=== PATIENT | male | born 1980 | race Caucasian/White ===

== ENCOUNTER 2017-09-14 17:21 | Inpatient (IN) | payer MEDICAID, OTHER ==
--- NOTE | 2017-09-14 18:20 | C.PDOC ---
History Of Present Illness 37 y/o male presents to ED requesting detox from heroin and ETOH. Patient states he drinks ETOH every other day and snorts 20 bags of heroin daily. Patient reports last use for both substances was yesterday and states last detox was 5 months ago "got bored" and started using again. No other complaints at this time. Time Seen by Provider: 09/14/17 17:59 Chief Complaint (Nursing): Substance Abuse History Per: Patient History/Exam Limitations: no limitations Onset/Duration Of Symptoms: Days Suicide/Self Injury Attempted (Context): None Modifying Factor(s): Alcohol Past Medical History Reviewed: Historical Data, Nursing Documentation, Vital Signs Vital Signs: Last Vital Signs Temp 97.7 F 09/14/17 18:02 Pulse 80 09/14/17 18:02 Resp 18 09/14/17 18:02 BP 129/91 H 09/14/17 18:02 Pulse Ox 98 09/14/17 19:13 - Medical History PMH: No Chronic Diseases Surgical History: No Surg Hx Family History: States: No Known Family Hx - Social History Hx Alcohol Use: Yes Hx Substance Use: Yes (heroin) - Immunization History Hx Tetanus Toxoid Vaccination: No Hx Influenza Vaccination: No Hx Pneumococcal Vaccination: No Review Of Systems Constitutional: Negative for: Fever, Chills Cardiovascular: Negative for: Chest Pain Gastrointestinal: Negative for: Nausea, Vomiting, Abdominal Pain Skin: Negative for: Rash Psych: Negative for: Suicidal ideation, Withdrawal Physical Exam - Physical Exam Appears: Non-toxic, No Acute Distress Skin: Normal Color, Warm, Dry, No Rash Head: Atraumatic, Normacephalic Eye(s): bilateral: Normal Inspection Oral Mucosa: Moist Neck: Normal ROM, Supple Cardiovascular: Rhythm Regular Respiratory: Normal Breath Sounds, No Rales, No Rhonchi, No Wheezing Gastrointestinal/Abdominal: Soft, No Tenderness, No Guarding, No Rebound Extremity: Normal ROM, Capillary Refill (<2 seconds) Neurological/Psych: Oriented x3 Gait: Steady ED Course And Treatment - Laboratory Results Result Diagrams: 09/14/17 18:28 09/14/17 18:28 Lab Interpretation: No Acute Changes (UDS + opitaes) O2 Sat by Pulse Oximetry: 98 (RA) Pulse Ox Interpretation: Normal Progress Note: Patient ismedically cleared for a detox admission Medical Decision Making Medical Decision Making: Patient is pre screened for detox Pending Medical clearance Disposition - Disposition Disposition: HOSPITALIZED Disposition Time: 19:33 Condition: STABLE - POA Present On Arrival: None - Clinical Impression Clinical Impression: Drug dependence - Scribe Statement The provider has reviewed the documentation as recorded by the Azraibbatsheva Mueller All medical record entries made by the Azraibe were at my direction and personally dictated by me. I have reviewed the chart and agree that the record accurately reflects my personal performance of the history, physical exam, medical decision making, and the department course for this patient. I have also personally directed, reviewed, and agree with the discharge instructions and disposition.
[2017-09-14 18:31] LABS: BASO # 0.1 K/uL (0.0-0.2); BASO % 0.5 % (0.0-2.0); EOS # 0.1 K/uL (0.0-0.7); EOS % 0.7 % (0.0-4.0); HEMOGLOBIN 16.2 g/dL (12.0-18.0); LYMPH # 3.2 K/uL (1.0-4.3); LYMPH % 19.9 % (20.0-40.0); MEAN CELL VOLUME 91.2 fL (80.0-94.0); MEAN CORPUSCULAR HEMOGLOBIN 31.3 pg (27.0-31.0); MEAN CORPUSCULAR HGB CONC 34.3 g/dL (33.0-37.0); MEAN PLATELET VOLUME 7.7 fL (7.2-11.7); MONO # 0.7 K/uL (0.0-0.8); MONO % 4.2 % (0.0-10.0); NEUT # 11.9 K/uL (1.8-7.0); NEUT % 74.7 % (50.0-75.0); RBC 5.2 Mil/uL (4.40-5.90); RED CELL DISTRIBUTION WIDTH 12.7 % (11.5-14.5); WHITE BLOOD COUNT 15.9 K/uL (4.8-10.8)
[2017-09-14 18:36] LABS: URINE BILIRUBIN NEGATIVE (NEGATIVE); URINE BLOOD NEGATIVE (NEGATIVE); URINE CLARITY Clear (Clear); URINE COLOR Yellow (YELLOW); URINE GLUCOSE (UA) NORMAL (Normal); URINE LEUKOCYTE ESTERASE NEG Leu/uL (Negative); URINE NITRATE NEGATIVE (NEGATIVE); URINE PROTEIN NEGATIVE (NEGATIVE); URINE UROBILINOGEN NORMAL mg/dL (0.2-1.0)
[2017-09-14 18:47] LABS: BARBITURATES, UR NEGATIVE (NEGATIVE); BENZODIAZEPINES, UR NEGATIVE (NEGATIVE); PHENCYCLIDINE, UR NEGATIVE (NEGATIVE)
[2017-09-14 18:48] LABS: ALBUMIN 4.4 g/dL (3.5-5.0); BLOOD UREA NITROGEN 15 mg/dL (9-20); CALCIUM 8.7 mg/dl (8.6-10.4); GFR AFRICAN-AMERICAN > 60; GFR NON-AFRICAN AMERICAN > 60
[2017-09-14 18:49] LABS: ALB/GLOB RATIO 1.2 (1.0-2.1); ALT/SGPT 14 U/L (21-72); AST/SGOT 28 U/L (17-59); OPIATES, UR POSITIVE (NEGATIVE)
--- NOTE | 2017-09-14 20:02 | PCM.BM ---
<Nicole Orozco - Last Filed: 09/14/17 20:00> Treatment Plan Problems - Problems identified on initial assessmt potiential for opiate withdrawal Date Initiated: 09/14/17 Time Initiated: 20:01 Assessment reference: NA Status: Active - Milieu Protocol Maintain good personal hygiene: daily Encourage regular showers, daily Remind patient to perform daily oral care, daily Assist patient to perform ADL's Maintain personal safety: every shift Educate patient to report safety concerns to staff, every shift Monitor environment for contraband/sharps Medication safety: Monitor for expected outcome, potential side effects: every shift, Assess barriers to learning: every shift, Assess readiness for medication education: every shift <Keya Donovan - Last Filed: 09/15/17 11:49> Family Contact Family involvement: Clark/SO not involved Family contact: Patient declines to allow family contact at present - Goals for Treatment Patient goals for treatment: COMPLETE DETOX AND PURSUE SUBOXONE OR VIVITROL MAINTENANCE. Discharge/Continuing Care - Education Needs Education Needs: Patient Medication, Patient Diagnosis/Disease Process, Patient Coping Skills, Patient Anger Management skills, Patient Placement options, Patient Community resources - Discharge Discharge Criteria: No longer exhibiting s/s of withdrawal, Reduction of target symptoms Discharge to:: Home, With Family - Treatment Team Participation Patient/Family/SO Statement: 09/15/17 11:48 "I WANNA GO TO [place] TO GET AWAY FROM THIS AREA BUT I'LL CONSIDER SUBOXONE OF VIVITROL IF THEY TAKE MY INSURANCE." Discussed with Family/SO: No Was Patient/Family/SO present at Treatment Team Meeting: Yes
[2017-09-15] MEDS: Multiple Vitamins Tab PO SCH (10:02)
--- NOTE | 2017-09-15 11:32 | PCM.PSYCH ---
Initial Psychiatric Evaluation - Initial Psychiatric Evaluation Type of Admission: Voluntary Legal Status: Capacity Chief Complaint (in patient's own words): "Heroin" History of Present Illness and Precipitating Events: The pt is seen, chart reviewed and case discussed. 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 He is using 20 bags intranasally x6 years. He started w painkillers, used cocaine "years ago" longest sobriety 2 years around 2011 He also uses alcohol and cannabis Alcohol 10 beers a day x 20 years. He had withdrawal in the past but no DTs or seizures Smokes 1/2 ppd cig Detox 5x and rehab once in [place] past psych hx: Denies Family psych hx: Denies Medical hx: Denies Current Medications: Active Medications Generic Name Dose Route Start Last Admin Trade Name Freq PRN Reason Stop Dose Admin Chlordiazepoxide 25 mg 09/15/17 00:00 09/15/17 05:59 Librium PO 09/18/17 23:59 25 mg Q6 ANAMARIA Administration Taper Chlordiazepoxide 25 mg 09/15/17 08:46 Librium PO Q4H PRN Alcohol Withdrawal Clonidine HCl 0.1 mg 09/14/17 21:11 Catapres PO Q4H PRN Symptoms of alcohol withdrawl Folic Acid 1 mg 09/15/17 10:00 09/15/17 10:10 Folic Acid PO 1 mg DAILY ANAMARIA Administration Hydroxyzine HCl 50 mg 09/15/17 08:47 Atarax PO Q6 PRN Anxiety Methadone HCl 20 mg 09/15/17 10:00 09/15/17 10:02 Methadone PO 09/20/17 09:59 20 mg Q24H ANAMARIA Administration Taper Multivitamins 1 tab 09/15/17 10:00 09/15/17 10:02 Hexavitamin PO 1 tab DAILY ANAMARIA Administration Nicotine 1 patch 09/15/17 10:00 09/15/17 10:01 Nicoderm Cq TD 1 patch DAILY ANAMARIA Administration Thiamine HCl 100 mg 09/15/17 10:00 09/15/17 10:01 Vitamin B1 Tab PO 100 mg DAILY ANAMARIA Administration Trazodone HCl 100 mg 09/15/17 22:00 Desyrel PO HS PRN insomnia Past Psychiatric History - Past Psychiatric History Previous Treatment History: None Pertinent Medical Hx (Current Medical&Sleep Prob, Allergies): Allergies Allergy/AdvReac Type Severity Reaction Status Date / Time No Known Allergies Allergy Verified 09/14/17 18:10 No Known Home Med 09/14/17 Review of Systems - Neurological Neurological: UNREMARKABLE - Psychiatric Psychiatric: Abnormal Sleep Pattern, Anxiety. absent: Hallucinations, Homicidal Ideation, Paranoia, Suicidal Ideation Mental Status Examination - Personal Presentation Personal Presentation: Looks stated age - Affect Affect: Constricted - Motor Activity Motor Activity: Calm - Reliability in Providing Information Reliability in Providing Information: Good - Speech Speech: Organized - Mood Mood: Anxious - Formal Thought Process Formal Thought Process: No Impairment - Cognitive Functions Orientation: Person, Place, Situation, Time Sensorium: Alert Attention/Concentration: Attentive Estimate of Intelligence: Average Judgement: Intact, as evidence by: Insight regarding need for hospitalization Memory: Recent intact, as evidence by: Ability to recall events of the day, Remote intact, as evidenced by: Abilit to recall sig. life events - Risk Risk: Withdrawal, Diminished functioning - Strength & Assets Inventory Strength & Assets Inventory: Cooperative - Limitations Limitations: Other DSM 5 DX - DSM 5 DSM 5 Diagnosis: Opioid withdrawal Opioid use disorder, severe Cannabis use disorder, moderate Alcohol use disorder, severe Alcohol withdrawal Cocaine use disorder, in remission - Recommended/Plan of Treatment Treatment Recommendations and Plan of Treatment: Methadone detox librium detox Gabapentin for augmentation As needed medications All risks, benefits and alternatives of the meds discussed, and the pt agreed and understood. Attend groups and activities Supportive therapy and psychoeducation [place] for abstinence CBT for relapse prevention Encourage MAT Refer to rehab or IOP, and self-help groups Smoking cessation with [place] Nicotine patch 34 min Projected ELOS: 4-5 days Prognosis: good w treatment - Smoking Cessation Smoking Cessation Initiated: Yes
[2017-09-16] MEDS: Multiple Vitamins Tab PO SCH (09:07)
--- NOTE | 2017-09-16 14:26 | PCM.PYCHPN ---
Psychiatric Progress Note - Psychiatric Progress Note Patient seen today, length of contact: 16 min Patient Chief Complaint: "Better today" Problems Identified/Issues Discussed: The pt is seen, chart reviewed, case discussed with staff. Support given, CBT and MD used briefly No new symptoms reported, improving slowly and needs more time No SEs from medications, risks discussed. After care discussed Medication Change: Yes (detox changes daily) Medical Record Reviewed: Yes Mental Status Examination - Cognitive Function Orientation: Person, Place, Situation, Time Memory: Intact Attention: WNL Concentration: Poor Association: WNL Fund of Knowledge: WNL - Mood Mood: Anxious - Affect Affect: Constricted - Speech Speech: Appropriate - Formal Thought Process Formal Thought Process: No Impairment - Suicidal Ideation Suicidal Ideation: No - Homicidal Ideation Homicidal Ideation: No Goal/Treatment Plan - Goal/Treatment Plan Need for Continued Stay: Discharge may exacerbated symptoms, Severe functional impairment Progress Toward Problem(s) and Goals/Treatment Plan: Methadone detox librium detox Gabapentin for augmentation As needed medications All risks, benefits and alternatives of the meds discussed, and the pt agreed and understood. Attend groups and activities Supportive therapy and psychoeducation [place] for abstinence CBT for relapse prevention Encourage MAT Refer to rehab or IOP, and self-help groups Smoking cessation with MD Nicotine patch Estimated Date of D/C: 09/19/17
[2017-09-17] MEDS: Multiple Vitamins Tab PO SCH (10:19)
--- NOTE | 2017-09-17 16:18 | PCM.PYCHPN ---
Psychiatric Progress Note - Psychiatric Progress Note Patient seen today, length of contact: 16 min Problems Identified/Issues Discussed: The pt is seen, chart reviewed, case discussed with staff. Patient stated he still had withdrawal symptoms including diarrhea, vomiting, and yawning The pt is compliant with medications and reports no side-effects. Symptoms are improving but needs more time to stabilize. After care discussed, support and psychoeducation given Medication Change: Yes (detox changes daily) Medical Record Reviewed: Yes Mental Status Examination - Cognitive Function Orientation: Person, Place, Situation, Time Memory: Intact Attention: WNL Concentration: Poor Association: WNL Fund of Knowledge: WNL Decription of patient's judgement and insights: fair/good Addtional comments: patient is anxious and cooperative - Mood Mood: Anxious - Affect Affect: Constricted - Speech Speech: Appropriate - Formal Thought Process Formal Thought Process: No Impairment Psychotic Thoughts and Behaviors: denied - Suicidal Ideation Suicidal Ideation: No Plan: denied - Homicidal Ideation Homicidal Ideation: No Plan: denied Goal/Treatment Plan - Goal/Treatment Plan Need for Continued Stay: Discharge may exacerbated symptoms, Severe functional impairment Progress Toward Problem(s) and Goals/Treatment Plan: Methadone detox librium detox increase Gabapentin for augmentation As needed medications All risks, benefits and alternatives of the meds discussed, and the pt agreed and understood. Attend groups and activities Supportive therapy and psychoeducation [place] for abstinence CBT for relapse prevention Encourage MAT Refer to rehab or IOP, and self-help groups Smoking cessation with MD Nicotine patch Estimated Date of D/C: 09/19/17 - Smoking Cessation Smoking Cessation Initiated: Yes
[2017-09-18] MEDS: Multiple Vitamins Tab PO SCH (09:21)
[2017-09-18] MEDS: Aluminum Hydroxide/Magnesium Hydroxide Susp (30 mL) PO PRN ×2 (09:24→17:39)
--- NOTE | 2017-09-18 16:33 | PCM.PYCHPN ---
Psychiatric Progress Note - Psychiatric Progress Note Patient seen today, length of contact: 16 min Patient Chief Complaint: I'm feeling better Problems Identified/Issues Discussed: The pt is seen, chart reviewed, case discussed with staff. Patient reported improvement in withdrawal symptoms including diarrhea, vomiting, and yawning The pt is compliant with medications and reports no side-effects. Symptoms are improving but needs more time to stabilize. After care discussed, support and psychoeducation given Medication Change: Yes (detox changes daily) Medical Record Reviewed: Yes Mental Status Examination - Cognitive Function Orientation: Person, Place, Situation, Time Memory: Intact Attention: WNL Concentration: Poor Association: WNL Fund of Knowledge: WNL Decription of patient's judgement and insights: fair/good Addtional comments: patient is calm and cooperative - Mood Mood: Anxious - Affect Affect: Constricted - Speech Speech: Appropriate - Formal Thought Process Formal Thought Process: No Impairment Psychotic Thoughts and Behaviors: denied - Suicidal Ideation Suicidal Ideation: No Plan: denied - Homicidal Ideation Homicidal Ideation: No Plan: denied Goal/Treatment Plan - Goal/Treatment Plan Need for Continued Stay: Discharge may exacerbated symptoms, Severe functional impairment Progress Toward Problem(s) and Goals/Treatment Plan: continue Methadone detox librium detox increase Gabapentin for augmentation As needed medications All risks, benefits and alternatives of the meds discussed, and the pt agreed and understood. Attend groups and activities Supportive therapy and psychoeducation [place] for abstinence CBT for relapse prevention Encourage MAT Refer to rehab or IOP, and self-help groups Smoking cessation with [place] Nicotine patch Estimated Date of D/C: 09/19/17
[2017-09-19 09:19] VITALS: BP 122/81; PULSE 86; RESP 18; TEMP 98; O2SAT 98
[2017-09-19] MEDS: Multiple Vitamins Tab PO SCH (09:50)
--- NOTE | 2017-09-19 11:12 | PCM.PYCHDC ---
Mental Status Examination - Mental Status Examination Orientation: Person, Place, Situation, Time Memory: Intact Mood: Neutral Affect: Constricted Speech: Soft Attention: WNL Concentration: WNL Association: WNL Fund of Knowledge: WNL Formal Thought Process: No Impairment Description of patient's judgement and insight: good, fair Psychotic Thoughts and Behaviors: denies any AVH Suicidal Ideation: No Current Homicidal Ideation?: No Discharge Summary - Discharge Note Reason for Hospitalization: The pt is seen, chart reviewed and case discussed. 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 He is using 20 bags intranasally x6 years. He started w painkillers, used cocaine "years ago" longest sobriety 2 years around 2011 He also uses alcohol and cannabis Alcohol 10 beers a day x 20 years. He had withdrawal in the past but no DTs or seizures Smokes 1/2 ppd cig Detox 5x and [place] once [place] Laboratory Data: Abnormal Lab Results 09/17/17 09/17/17 17:15 17:15 Hepatitis C Antibody Negative HIV 1&2 Antibody Screen Negative Consultations:: List each consultation separately and include: 1. Reason for request. 2. Findings. 3. Follow-up Summary of Hospital Course include:: 1. Description of specific treatment plan utilized for patients during their course of treatmen. 2. Summarize the time- course for resolution of acute symptoms and/or regressed behaviors. 3. Describe issues identified and worked on during hospitalization. 4. Describe medication utilized. 5. Describe medical problems identified and treated. 6. Reassessment of suicide risk Summary of Hospital Course: During the course of his stay, patient (pt) started progressively improving and he reports improvement in his mood and withdrawal symptoms. He started attending groups and meetings and started socializing. Patient denied any feelings of hopelessness, helplessness, and worthlessness, denied any problem with the sleep or appetite, denied suicidal ideation or homicidal ideation. Pt denied any auditory or visual hallucinations. Some changes were made in his current medications and patient was discharged on following medications. He tolerated these medications very well and denied any side effects. - Final Diagnosis (DSM 5) Condition upon Discharge: STABLE DSM 5: Opioid withdrawal Opioid use disorder, severe Cannabis use disorder, moderate Alcohol use disorder, severe Alcohol withdrawal Cocaine use disorder, in remission Disposition: HOME/ ROUTINE Follow-up Treatment Plan: Education: Pt was educated and counseled about the risks and benefits of taking and not taking medications. Pt was educated and counseled about the risks of drinking and abusing drugs. Pt was educated and counseled to go to the ER or call 911 if pt develop suicidal ideation or homicidal ideation, worsening of symptoms or severe side effects of the meds. Prescriptions/Medication Reconciliation: Gabapentin [Neurontin] 400 mg PO BID #60 cap traZODone [Desyrel] 100 mg PO HS PRN #30 tab PRN Reason: insomnia - Smoking Cessation Smoking Cessation Medication prescribed: No - Antipsychotic Medications Pt discharged on 2 or more routine antipsychotic medications: No
== END 2017-09-19 11:22 | disposition home or self-care (01) | DRG 745 ==
LOC: C.ER 17:21 → C.7D 19:32
PROC: HZ52ZZZ Individual Psychotherapy for Substance Abuse Treatment, Cognitive-Behavioral (ICD-10-PCS; principal; 2017-09-14)
PROC: HZ2ZZZZ Detoxification Services for Substance Abuse Treatment (ICD-10-PCS; 2017-09-14)
PROC: HZ59ZZZ Individual Psychotherapy for Substance Abuse Treatment, Supportive (ICD-10-PCS; 2017-09-14)
PROC: HZ91ZZZ Pharmacotherapy for Substance Abuse Treatment, Methadone Maintenance (ICD-10-PCS; 2017-09-14)
DX: F11.23 Opioid dependence with withdrawal (principal); F10.230 Alcohol dependence with withdrawal, uncomplicated; F12.20 Cannabis dependence, uncomplicated; F14.11 Cocaine abuse, in remission; F17.210 Nicotine dependence, cigarettes, uncomplicated

== ENCOUNTER 2018-01-14 19:04 | Inpatient (IN) | payer MEDICAID, OTHER ==
--- NOTE | 2018-01-14 19:47 | C.PDOC ---
History Of Present Illness 37 year old male presents to the ED requesting alcohol and heroin detox. . He denies suicidal/homicidal ideation and has no other complaints at this time. Time Seen by Provider: 01/14/18 19:42 Chief Complaint (Nursing): Substance Abuse History Per: Patient History/Exam Limitations: no limitations Onset/Duration Of Symptoms: Hrs Current Symptoms Are (Timing): Still Present Suicide/Self Injury Attempted (Context): None Modifying Factor(s): Alcohol, Narcotics (heroin) Associated Symptoms: denies: Suicidal Thoughts, Suicidal Plan Involuntary Hold By: None Recent travel outside of the [place]: No Additional History Per: Patient Past Medical History Reviewed: Historical Data, Nursing Documentation, Vital Signs Vital Signs: Last Vital Signs Temp 97.6 F 01/14/18 22:23 Pulse 62 01/14/18 22:23 Resp 20 01/14/18 22:23 BP 130/81 01/14/18 22:23 Pulse Ox 98 01/14/18 22:23 - Medical History PMH: No Chronic Diseases Denies: Diabetes, Hepatitis, HIV, HTN, Seizures, Sexually Transmitted Disease Surgical History: No Surg Hx - [facility] Procedures DETOXIFICATION SERVICES FOR SUBSTANCE ABUSE TREATMENT (09/14/17) INDIV PSYCHOTHERAPY FOR SUBSTANCE ABUSE TREATMENT, SUPPORT (09/14/17) INDIV PSYCHOTHERAPY FOR SUBSTANCE ABUSE, [facility]IT[facility]IOR[facility] (09/14/17) PHARMACOTHERAPY FOR SUBSTANCE ABUSE, METHADONE MAINT (09/14/17) Family History: States: Unknown Family Hx - Social History Hx Alcohol Use: Yes Hx Substance Use: Yes - Immunization History Hx Tetanus Toxoid Vaccination: No Hx Influenza Vaccination: No Hx Pneumococcal Vaccination: No Review Of Systems Psych: Positive for: Other (alcohol and heroin detox ). Negative for: Suicidal ideation Physical Exam - Physical Exam Appears: Non-toxic, No Acute Distress Skin: Normal Color, Warm, Dry Head: Atraumatic, Normacephalic Eye(s): bilateral: Normal Inspection Oral Mucosa: Moist Neck: Supple Chest: Symmetrical, No Deformity, No Tenderness Cardiovascular: Rhythm Regular, No Murmur Respiratory: Normal Breath Sounds, No Rales, No Rhonchi, No Wheezing Extremity: Normal ROM, Capillary Refill (less than 2 seconds ) Neurological/Psych: Oriented x3, Normal Speech, Normal Cognition ED Course And Treatment - Laboratory Results Result Diagrams: 01/14/18 20:15 01/14/18 20:15 O2 Sat by Pulse Oximetry: 98 (on RA) Pulse Ox Interpretation: Normal Medical Decision Making Medical Decision Making: Progress: Bloodwork and urinalysis ordered and reviewed. medically clear. accepted. Disposition - Disposition Disposition: HOSPITALIZED Disposition Time: 22:00 Condition: STABLE - Clinical Impression Clinical Impression: Drug dependence - Scribe Statement The provider has reviewed the documentation as recorded by the Scribe (Domonique Tan) Provider Attestation: All medical record entries made by the Scribe were at my direction and personally dictated by me. I have reviewed the chart and agree that the record accurately reflects my personal performance of the history, physical exam, medical decision making, and the department course for this patient. I have also personally directed, reviewed, and agree with the discharge instructions and disposition. Decision To Admit - Pt Status Changed To: Hospital Disposition Of: Inpatient - Admit Certification Admit to Inpatient:: After my assessment, the patient will require hospitalization for at least two midnights. This is because of the severity of symptoms shown, intensity of services needed, and/or the medical risk in this patient being treated as an outpatient. - InPatient: Physician Admission Certification: I certify that this patient requires 2 or more midnights of care for the following reason:: needs detox - . Bed Request Type: Detox Admitting Physician: Abner Franklin Patient Diagnosis: Drug dependence
[2018-01-14 20:14] LABS: URINE BILIRUBIN NEGATIVE (NEGATIVE); URINE BLOOD NEGATIVE (NEGATIVE); URINE CLARITY Clear (Clear); URINE COLOR Yellow (YELLOW); URINE GLUCOSE (UA) NORMAL (Normal); URINE LEUKOCYTE ESTERASE NEG Leu/uL (Negative); URINE PROTEIN NEGATIVE (NEGATIVE); URINE UROBILINOGEN NORMAL mg/dL (0.2-1.0)
[2018-01-14 20:19] LABS: BASO # 0.1 K/uL (0.0-0.2); BASO % 0.6 % (0.0-2.0); EOS # 0.1 K/uL (0.0-0.7); EOS % 1.4 % (0.0-4.0); HEMOGLOBIN 14.9 g/dL (12.0-18.0); LYMPH # 2.7 K/uL (1.0-4.3); LYMPH % 27.7 % (20.0-40.0); MEAN CELL VOLUME 90.9 fL (80.0-94.0); MEAN CORPUSCULAR HEMOGLOBIN 31.9 pg (27.0-31.0); MEAN CORPUSCULAR HGB CONC 35.1 g/dL (33.0-37.0); MEAN PLATELET VOLUME 7.4 fL (7.2-11.7); MONO # 0.5 K/uL (0.0-0.8); NEUT # 6.4 K/uL (1.8-7.0); NEUT % 65.3 % (50.0-75.0); RBC 4.68 Mil/uL (4.40-5.90); RED CELL DISTRIBUTION WIDTH 13.2 % (11.5-14.5); WHITE BLOOD COUNT 9.8 K/uL (4.8-10.8)
[2018-01-14 20:28] LABS: BARBITURATES, UR NEGATIVE (NEGATIVE); BENZODIAZEPINES, UR NEGATIVE (NEGATIVE); PHENCYCLIDINE, UR NEGATIVE (NEGATIVE)
[2018-01-14 20:29] LABS: OPIATES, UR POSITIVE (NEGATIVE)
[2018-01-14 20:34] LABS: ALB/GLOB RATIO 1.4 (1.0-2.1); ALBUMIN 4.2 g/dL (3.5-5.0); ALT/SGPT 15 U/L (21-72); AST/SGOT 23 U/L (17-59); BLOOD UREA NITROGEN 11 mg/dL (9-20); CALCIUM 7.8 mg/dl (8.6-10.4); GFR AFRICAN-AMERICAN > 60; GFR NON-AFRICAN AMERICAN > 60
--- NOTE | 2018-01-14 22:34 | PCM.BM ---
<Diane Lucas G - Last Filed: 01/14/18 22:32> Treatment Plan Problems - Problems identified on initial assessmt potential for alcohol withdrawal Date Initiated: 01/14/18 Time Initiated: 22:33 Assessment reference: NA Status: Active potential for opiates withdrawal Date Initiated: 01/14/18 Time Initiated: 22:33 Assessment reference: NA Status: Active Treatment assets and liabiliti Patient Assests: cooperative, insightful, motivated, self-reliant, ADL independent, physically healthy, good support system, negotiates basic needs, cognitively intact Patient Liabilities: substance abuse - Milieu Protocol Maintain good personal hygiene: daily Encourage regular showers, daily Remind patient to perform daily oral care, daily Assist patient to perform ADL's Maintain personal safety: every shift Educate patient to report safety concerns to staff, every shift Monitor environment for contraband/sharps Medication safety: Monitor for expected outcome, potential side effects: every shift, Assess barriers to learning: every shift, Assess readiness for medication education: every shift <Abner Franklin M - Last Filed: 01/18/18 19:28> - Diagnosis (1) Opioid use disorder, severe, dependence Status: Acute Interventions: 01/18/18 19:27 Assess 7x/week regarding severity of withdrawal * Educate regarding risks, benefits, side effects and alternatives of medications * Use Motivational Interviewing for abstinence * Use CBT for relapse prevention * Medication management for withdrawal symptoms * Encourage medication assisted treatment (2) Alcohol use disorder, severe, dependence Status: Acute Interventions: 01/18/18 19:28 Assess 7x/week regarding severity of withdrawal * Educate regarding risks, benefits, side effects and alternatives of medications * Use Motivational Interviewing for abstinence * Use CBT for relapse prevention * Medication management for withdrawal symptoms * Encourage medication assisted treatment (3) Cannabis use disorder, moderate, dependence Status: Acute Interventions: 01/18/18 19:28 Assess 7x/week regarding severity of withdrawal * Educate regarding risks, benefits, side effects and alternatives of medications * Use Motivational Interviewing for abstinence * Use CBT for relapse prevention * Medication management for withdrawal symptoms * Encourage medication assisted treatment
--- NOTE | 2018-01-14 23:39 | PCM.PSYCH ---
Initial Psychiatric Evaluation - Initial Psychiatric Evaluation Type of Admission: Voluntary Legal Status: Capacity Chief Complaint (in patient's own words): I need help for my substance use. History of Present Illness and Precipitating Events: Patient is a 37 years old, single, unemployed, male with history of depression, no medication was admitted for the treatment of withdrawing from heroin and alcohol. Heroin: Started at 31 years of age, was using third in to 15 bags of heroin daily, sniffing. Last useed 30 bags yesterday. Longest period of abstinence was one year, 4 years ago. History of 2 previous detoxes and one rehabilitation. Alcohol: Started at 13 years of age, increased gradually. Currently he was drinking 6 beers and 6-10 shots each time and was drinking about 5 times per week. Last drink was 4 days ago. Longest period of abstinence was one year, 4 years ago. Cannabis: His last use of cannabis was about 3 weeks ago who according to patient. His urine drug screen was positive for cannabis. Smokes one pack of cigarettes daily and is requesting for nicotine patch. Patient was born in [place] and has high school graduation. He quit his job about one week ago due to substance use. He was never and has no children. He lives with parents and is supported by parents. His height is 6 feet and weight is 170 pounds. Current Medications: Active Medications Generic Name Dose Route Start Last Admin Trade Name Freq PRN Reason Stop Dose Admin Chlordiazepoxide 25 mg 01/14/18 23:06 01/14/18 23:25 Librium PO 25 mg Q6 PRN Administration alcohol withdrawal Trazodone HCl 50 mg 01/14/18 23:08 01/14/18 23:25 Desyrel PO 50 mg HS PRN Administration insomnia Past Psychiatric History - Past Psychiatric History Previous Treatment History: Inpatient Prior Professional Help: History of 2 detox and one rehabilitation History of Abuse: None reported History of ETOH/Drug Use: See HPI History of Family Illness: Reported his father is alcoholic. Pertinent Medical Hx (Current Medical&Sleep Prob, Allergies): Allergies Allergy/AdvReac Type Severity Reaction Status Date / Time EGG AdvReac RASH Verified 09/16/17 08:26 Gabapentin [Neurontin] 400 mg PO BID #60 cap 09/19/17 traZODone [Desyrel] 100 mg PO HS PRN #30 tab 09/19/17 Review of Systems - Psychiatric Psychiatric: Anxiety, Depression Mental Status Examination - Personal Presentation Personal Presentation: Looks stated age - Affect Affect: Depressed - Motor Activity Motor Activity: Calm - Reliability in Providing Information Reliability in Providing Information: Fair - Speech Speech: Organized - Mood Mood: Depressed - Formal Thought Process Formal Thought Process: No Impairment - Hallucinations/Delusions Hallucinations: Other (None reported) Delusions: Other - Obsessions/Compulsions Obsessions: None Compulsions: None - Cognitive Functions Orientation: Person, Place, Situation, Time Sensorium: Alert Attention/Concentration: Attentive Abstract Thinking: [place] Estimate of Intelligence: Average Judgement: Intact, as evidence by: Insight regarding need for hospitalization Memory: Recent intact, as evidence by: 3/3 object recall, Remote intact, as evidenced by: Ability to recall historical events - Risk Risk: Withdrawal, Diminished functioning - Strength & Assets Inventory Strength & Assets Inventory: Family support, Cooperative - Limitations Limitations: Other DSM 5 DX - DSM 5 DSM 5 Diagnosis: Opiate use disorder severe Alcohol use disorder severe Cannabis use disorder moderate - Recommended/Plan of Treatment Treatment Recommendations and Plan of Treatment: Patient education. Supportive therapy. CBT for relapse prevention. [place] for abstinence. We'll start methadone for opiate withdrawal symptoms. We'll start him Librium taper for alcohol withdrawal symptoms. Other when necessary medications. Projected ELOS: 4-5 days Discharge Plan and Discharge Criteria: Patient wants to go to [facility] for follow-up care after discharge from the hospital. - Smoking Cessation Smoking Cessation Initiated: Yes
[2018-01-15] MEDS ORDERED: Aluminum Hydroxide/Magnesium Hydroxide Susp (30 mL) PO PRN (02:32)
[2018-01-15] MEDS: Multiple Vitamins Tab PO SCH (09:15)
--- NOTE | 2018-01-15 15:30 | PCM.PYCHPN ---
Psychiatric Progress Note - Psychiatric Progress Note Patient seen today, length of contact: 15 Minutes Patient Chief Complaint: I'm feeling little better. Problems Identified/Issues Discussed: Patient seen, chart reviewed, case discussed with staff. Issues related to illness and treatment were discussed with the patient. Reported compliant with treatment with no adverse affects. Tolerating treatment very well. Reported feeling better. Aftercare discussed with the patient. At the time of evaluation, patient was awake alert oriented 3, had no delusions , no auditory or visual hallucinations, no suicidal ideations or homicidal ideations. Medical Problems: None reported Diagnostic Results: Reviewed DSM 5 Symptoms Update: Some improvement with treatment Medication Change: No Medical Record Reviewed: Yes Mental Status Examination - Cognitive Function Orientation: Person, Place, Situation, Time Memory: Intact Attention: WNL Concentration: WNL Association: WN Fund of Knowledge: [facility] Decription of patient's judgement and insights: Fair - Mood Mood: Depressed - Affect Affect: Depressed - Speech Speech: Appropriate - Formal Thought Process Formal Thought Process: No Impairment Psychotic Thoughts and Behaviors: None - Suicidal Ideation Suicidal Ideation: No - Homicidal Ideation Homicidal Ideation: No Goal/Treatment Plan - Goal/Treatment Plan Need for Continued Stay: Remain at risks for inpatient hospitalization, Discharge may exacerbated symptoms, Severe functional impairment Progress Toward Problem(s) and Goals/Treatment Plan: Patient education. Supportive therapy. CBT for relapse prevention. [place] for abstinence. Continue treatment as before. Estimated Date of D/C: 01/18/18 - Smoking Cessation Smoking Cessation Initiated: Yes
[2018-01-16] MEDS: Multiple Vitamins Tab PO SCH (09:28)
--- NOTE | 2018-01-16 20:06 | PCM.PYCHPN ---
Psychiatric Progress Note - Psychiatric Progress Note Patient seen today, length of contact: 15 Minutes Patient Chief Complaint: I'm feeling better. Problems Identified/Issues Discussed: Patient seen, chart reviewed, case discussed with staff. Issues related to illness and treatment were discussed with the patient. Reported compliant with treatment with no adverse affects. Tolerating treatment very well. Reported feeling better. Aftercare discussed with the patient. At the time of evaluation, patient was awake alert oriented 3, had no delusions , no auditory or visual hallucinations, no suicidal ideations or homicidal ideations. Medical Problems: None reported Diagnostic Results: Reviewed DSM 5 Symptoms Update: Improving with treatment Medication Change: No Medical Record Reviewed: Yes Mental Status Examination - Cognitive Function Orientation: Person, Place, Situation, Time Memory: Intact Attention: WNL Concentration: WNL Association: WNL Fund of Knowledge: [facility] Decription of patient's judgement and insights: Fair - Mood Mood: Depressed (Less than before) - Affect Affect: Depressed - Speech Speech: Appropriate - Formal Thought Process Formal Thought Process: No Impairment Psychotic Thoughts and Behaviors: None - Suicidal Ideation Suicidal Ideation: No - Homicidal Ideation Homicidal Ideation: No Goal/Treatment Plan - Goal/Treatment Plan Need for Continued Stay: Remain at risks for inpatient hospitalization, Discharge may exacerbated symptoms, Severe functional impairment Progress Toward Problem(s) and Goals/Treatment Plan: Patient education. Supportive therapy. CBT for relapse prevention. [place] for abstinence. Continue treatment as before. Estimated Date of D/C: 01/18/18 - Smoking Cessation Smoking Cessation Initiated: Yes
[2018-01-17] MEDS: Multiple Vitamins Tab PO SCH (09:55)
--- NOTE | 2018-01-17 20:08 | PCM.PYCHPN ---
Psychiatric Progress Note - Psychiatric Progress Note Patient seen today, length of contact: 15 Minutes Patient Chief Complaint: I'm feeling much better. Problems Identified/Issues Discussed: Patient seen, chart reviewed, case discussed with staff. Issues related to illness and treatment were discussed with the patient. Reported compliant with treatment with no adverse affects. Tolerating treatment very well. Reported feeling much better. Aftercare discussed with the patient. At the time of evaluation, patient was awake alert oriented 3, had no delusions , no auditory or visual hallucinations, no suicidal ideations or homicidal ideations. Medical Problems: None reported Diagnostic Results: Reviewed DSM 5 Symptoms Update: Improving with treatment Medication Change: No Medical Record Reviewed: Yes Mental Status Examination - Cognitive Function Orientation: Person, Place, Situation, Time Memory: Intact Attention: WNL Concentration: WNL Association: WN Fund of Knowledge: [facility] Decription of patient's judgement and insights: Fair - Mood Mood: Depressed (Much less than before) - Affect Affect: Depressed - Speech Speech: Appropriate - Formal Thought Process Formal Thought Process: No Impairment Psychotic Thoughts and Behaviors: None - Suicidal Ideation Suicidal Ideation: No - Homicidal Ideation Homicidal Ideation: No Goal/Treatment Plan - Goal/Treatment Plan Need for Continued Stay: Remain at risks for inpatient hospitalization, Discharge may exacerbated symptoms, Severe functional impairment Progress Toward Problem(s) and Goals/Treatment Plan: Patient education. Supportive therapy. CBT for relapse prevention. [place] for abstinence. Continue treatment as before. Estimated Date of D/C: 01/18/18 - Smoking Cessation Smoking Cessation Initiated: Yes
[2018-01-18 06:32] VITALS: RESP 18
[2018-01-18] MEDS: Multiple Vitamins Tab PO SCH (09:22)
[2018-01-18 09:58] VITALS: BP 125/79; PULSE 74; TEMP 97.7; O2SAT 99
--- NOTE | 2018-01-18 19:32 | PCM.PYCHDC ---
Mental Status Examination - Mental Status Examination Orientation: Person, Place, Situation, Time Memory: Intact Mood: Neutral Affect: Other (Appropriate) Speech: Appropriate Attention: WNL Concentration: WNL Association: WNL Fund of Knowledge: WNL Formal Thought Process: No Impairment Description of patient's judgement and insight: Fair Psychotic Thoughts and Behaviors: None Suicidal Ideation: No Current Homicidal Ideation?: No Discharge Summary - Discharge Note Reason for Hospitalization: Opiate use disorder severe Alcohol use disorder severe Cannabis use disorder moderate Laboratory Data: Reviewed Consultations:: List each consultation separately and include: 1. Reason for request. 2. Findings. 3. Follow-up Summary of Hospital Course include:: 1. Description of specific treatment plan utilized for patients during their course of treatmen. 2. Summarize the time- course for resolution of acute symptoms and/or regressed behaviors. 3. Describe issues identified and worked on during hospitalization. 4. Describe medication utilized. 5. Describe medical problems identified and treated. 6. Reassessment of suicide risk Summary of Hospital Course: Patient is a 37 years old, single, unemployed, male with history of depression, no medication was admitted for the treatment of withdrawing from heroin and alcohol. Heroin: Started at 31 years of age, was using third in to 15 bags of heroin daily, sniffing. Last useed 30 bags yesterday. Longest period of abstinence was one year, 4 years ago. History of 2 previous detoxes and one rehabilitation. Alcohol: Started at 13 years of age, increased gradually. Currently he was drinking 6 beers and 6-10 shots each time and was drinking about 5 times per week. Last drink was 4 days ago. Longest period of abstinence was one year, 4 years ago. Cannabis: His last use of cannabis was about 3 weeks ago who according to patient. His urine drug screen was positive for cannabis. Smokes one pack of cigarettes daily and is requesting for nicotine patch. Patient was born in [place] and has high school graduation. He quit his job about one week ago due to substance use. He was never and has no children. He lives with parents and is supported by parents. His height is 6 feet and weight is 170 pounds. During his stay in the hospital patient was treated with Librium detox protocol for alcohol withdrawal symptoms and with methadone for opiate withdrawal symptoms. Patient was also started on other when necessary medications. Patient was attending groups and other activities on the unit. With the above treatment , patient started feeling better and had no withdrawal symptoms today. Today patient was ready for discharge. At the time of evaluation and discharge, patient was awake alert oriented 3, had no delusions, no auditory or visual hallucinations, no suicidal ideations or homicidal ideations. Patient was discharged in a stable condition. - Diagnosis (1) Opioid use disorder, severe, dependence Status: Acute (2) Alcohol use disorder, severe, dependence Status: Acute (3) Cannabis use disorder, moderate, dependence Status: Acute - Final Diagnosis (DSM 5) Condition upon Discharge: STABLE Disposition: HOME/ ROUTINE Follow-up Treatment Plan: Patient will go to [facility] for follow-up care after discharge from the hospital. Prescriptions/Medication Reconciliation: Gabapentin [Neurontin] 300 mg PO TID #90 cap - Smoking Cessation Smoking Cessation Medication prescribed: No - Antipsychotic Medications Pt discharged on 2 or more routine antipsychotic medications: No
== END 2018-01-18 11:31 | disposition home or self-care (01) | DRG 745 ==
LOC: C.ER 19:04 → C.7D 20:52
PROC: HZ2ZZZZ Detoxification Services for Substance Abuse Treatment (ICD-10-PCS; principal; 2018-01-14)
PROC: HZ52ZZZ Individual Psychotherapy for Substance Abuse Treatment, Cognitive-Behavioral (ICD-10-PCS; 2018-01-14)
PROC: HZ59ZZZ Individual Psychotherapy for Substance Abuse Treatment, Supportive (ICD-10-PCS; 2018-01-14)
PROC: HZ42ZZZ Group Counseling for Substance Abuse Treatment, Cognitive-Behavioral (ICD-10-PCS; 2018-01-14)
DX: F10.230 Alcohol dependence with withdrawal, uncomplicated (principal); F11.23 Opioid dependence with withdrawal; Y90.0 Blood alcohol level of less than 20 mg/100 ml; F17.210 Nicotine dependence, cigarettes, uncomplicated; F41.9 Anxiety disorder, unspecified; F32.9 Major depressive disorder, single episode, unspecified; F12.20 Cannabis dependence, uncomplicated